=== PATIENT | male | born 1945 | race Caucasian/White ===

== ENCOUNTER 2020-10-27 18:57 | Emergency (ER) | payer MEDICARE, OTHER ==
[~2020-10-27] VITALS: Ht 172.7 cm; Wt 95.2 kg
[~2020-10-27 18:57] MED LIST: ACID1TAB PO; ATROPINE PO; CYCL10TA45 PO; DIPHENOXYLATE PO; FRSM40T PO; FURO10VI IV; Fluticasone Propionate NS; HYDR-34 PO; IPRA3AMP11 INH; KCL20TCR PO; Non Medication Item MC; ONDA2VIA IV; PRD20T PO; Sodium Chloride IV
--- NOTE | 2020-10-27 19:41 | ED General ---
General Chief Complaint: General Problems/Pain Stated Complaint: FATIGUE/WEAKNESS Source of Information: Patient Exam Limitations: No Limitations History of Present Illness Date Seen by Provider: Oct 27, 2020 Time Seen by Provider: 19:28 Initial Comments This is a well-appearing 75-year-old male who presents to the ER with complaints of difficulty sleeping and fatigue 1 week. Has taken Melatonin OTC but this has not helped. States he has no other complaints at this time. Denies fevers, chills, cough, shortness of breath, chest pain, nausea, vomiting, diarrhea, abdominal pain, or difficulty urinating. No ill contacts or COVID exposure. Allergies and Home Medications Allergies Coded Allergies: No Known Drug Allergies (Unverified , 10/17/14) Home Medications Azithromycin 250 Mg Tablet, 250 MG PO DAILY Prescribed by: TRINA CARUSO on 10/27/202111 Furosemide 40 Mg Tab, 40 MG PO DAILY@0700 Prescribed by: JEREMY JERRY on 11/03/14 1443 Methylprednisolone 4 Mg Tab.ds.pk, 4 MG PO UD PER DOSE PACK INSTRUCTIONS Prescribed by: TRINA CARUSO on 10/27/202111 Potassium Chloride 20 Meq Tab, 20 MEQ PO DAILY@0700 Prescribed by: MICKEY MARI on 10/29/14 1036 Patient Home Medication List Home Medication List Reviewed: Yes Review of Systems Review of Systems Constitutional: malaise, weakness EENTM: no symptoms reported Respiratory: no symptoms reported Cardiovascular: no symptoms reported Gastrointestinal: no symptoms reported Genitourinary: no symptoms reported Musculoskeletal: no symptoms reported Skin: no symptoms reported Psychiatric/Neurological: No Symptoms Reported Hematologic/Lymphatic: No Symptoms Reported Immunological/Allergic: no symptoms reported Past Yhknopw-Ptskiv-Vokgjt Hx Immunizations Up To Date Tetanus Booster (TDap): More than 5yrs PED Vaccines UTD: No Date of Pneumonia Vaccine: Oct 25, 2014 Date of Influenza Vaccine: Oct 25, 2014 Past Medical History Tonsillectomy Reproductive Disorders: No Sexually Transmitted Disease: No HIV/AIDS: No Gastroesophageal Reflux, Hemorrhoids, Ulcer Osteoporosis, Arthritis Cataract Hearing Impairment: Hard of Hearing Adverse Reaction/Blood Tranf: No Family Medical History Abdominal aortic aneurysm G8 BROTHER Arthritis 19 FATHER 19 MOTHER G8 BROTHER G8 SISTER Asthma grandmother Cardiovascular disease grandfather Cataracts G8 BROTHER G8 SISTER Colon cancer grandfather Completed stroke grandfather Coronary thrombosis 19 MOTHER Fibrocystic disease of breast G8 SISTER Gastroenteritis 19 FATHER G8 BROTHER Hypercholesterolemia G8 BROTHER Hypertension G8 BROTHER Myocardial infarction 19 MOTHER G8 BROTHER Osteoporosis 19 MOTHER G8 BROTHER Respiratory disorder Thyroid disease 19 MOTHER No Family History of: AIDS [place]'s disease Alcoholism Alzheimer's disease Aphasia Cancer of mouth Congenital disease Congenital heart disease Cystic fibrosis Deafness or hearing loss Dementia Diabetes mellitus Drug abuse Dysphasia Glaucoma Headache disorder Infertility Kidney disease Neoplasm Not obtainable due to adoption Parkinson's disease Prostate cancer Psychosocial problem Seizure disorder Severe allergy Tuberculosis Visual disorder Physical Exam Vital Signs Vital Signs - First Documented 10/27/20 19:30 Temp 38.1 Pulse 76 Resp 20 B/P (MAP) 7/78 (55) Pulse Ox 95 Capillary Refill : Height, Weight, BMI Height: 5'8.00" Weight: 205lbs. 8.0oz. 92.385755ck; BMI Method: General Appearance: No Apparent Distress, WD/WN Eyes: Bilateral Eye Normal Inspection, Bilateral Eye PERRL, Bilateral Eye EOMI HEENT: PERRL/EOMI, Normal ENT Inspection, Pharynx Normal, Moist Mucous Membranes Neck: Full Range of Motion, Normal Inspection, Non Tender Respiratory: Chest Non Tender, Lungs Clear, Normal Breath Sounds, No Accessory Muscle Use, No Respiratory Distress Cardiovascular: Regular Rate, Rhythm, Normal Peripheral Pulses Gastrointestinal: Normal Bowel Sounds, Non Tender, Soft Extremity: Normal Capillary Refill, Normal Inspection Neurologic/Psychiatric: Alert, Oriented x3, No Motor/Sensory Deficits, Normal Mood/Affect Skin: Normal Color, Warm/Dry Progress/Results/Core Measures Suspected Sepsis SIRS Temperature: Pulse: Respiratory Rate: Laboratory Tests 10/27/20 19:47: White Blood Count 4.3 Blood Pressure / Mean: Laboratory Tests 10/27/20 19:47: Creatinine 1.80H, Platelet Count 119L, Total Bilirubin 0.5 Results/Orders Lab Results Laboratory Tests Test 10/27/20 19:47 Range/Units White Blood Count 4.3 4.3-11.0 10^3/uL Red Blood Count 5.16 4.30-5.52 10^6/uL Hemoglobin 14.9 13.3-17.7 g/dL Hematocrit 45 40-54 % Mean Corpuscular Volume 88 80-99 fL Mean Corpuscular Hemoglobin 29 25-34 pg Mean Corpuscular Hemoglobin Concent 33 32-36 g/dL Red Cell Distribution Width 14.9 H 10.0-14.5 % Platelet Count 119 L 130-400 10^3/uL Mean Platelet Volume 9.9 9.0-12.2 fL Immature Granulocyte % (Auto) 1 % Neutrophils (%) (Auto) 70 42-75 % Lymphocytes (%) (Auto) 21 12-44 % Monocytes (%) (Auto) 8 0-12 % Eosinophils (%) (Auto) 0 0-10 % Basophils (%) (Auto) 0 0-10 % Neutrophils # (Auto) 3.0 1.8-7.8 10^3/uL Lymphocytes # (Auto) 0.9 L 1.0-4.0 10^3/uL Monocytes # (Auto) 0.4 0.0-1.0 10^3/uL Eosinophils # (Auto) 0.0 0.0-0.3 10^3/uL Basophils # (Auto) 0.0 0.0-0.1 10^3/uL Immature Granulocyte # (Auto) 0.0 0.0-0.1 10^3/uL Sodium Level 132 L 135-145 MMOL/L Potassium Level 3.6 3.6-5.0 MMOL/L Chloride Level 101 98-107 MMOL/L Carbon Dioxide Level 18 L 21-32 MMOL/L Anion Gap 13 5-14 MMOL/L Blood Urea Nitrogen 28 H 7-18 MG/DL Creatinine 1.80 H 0.60-1.30 MG/DL Estimat Glomerular Filtration Rate 37 BUN/Creatinine Ratio 16 Glucose Level 118 H 70-105 MG/DL Calcium Level 8.6 8.5-10.1 MG/DL Corrected Calcium 9.0 8.5-10.1 MG/DL Total Bilirubin 0.5 0.1-1.0 MG/DL Aspartate Amino Transf (AST/SGOT) 27 5-34 U/L Alanine Aminotransferase (ALT/SGPT) 17 0-55 U/L Alkaline Phosphatase 49 40-136 U/L Total Protein 7.2 6.4-8.2 GM/DL Albumin 3.5 3.2-4.5 GM/DL Coronavirus 2019 (SARAH) Positive H Negative Micro Results Microbiology 10/27/20 Influenza Types A,B Antigen (JOSE L) - Final, Complete My Orders Orders - ZULY,STORMY D ANALYTICS CONSULTANT Covid 19 Inhouse Test (10/27/20 19:36) Influenza A And B Antigens (10/27/20 19:36) Cbc With Automated Diff (10/27/20 19:36) Comprehensive Metabolic Panel (10/27/20 19:36) Chest 1 View, Ap/Pa Only (10/27/20 19:36) Azithromycin Tablet (Zithromax Tablet) (10/27/20 21:15) Vital Signs/I&O 10/27/20 19:30 Temp 38.1 Pulse 76 Resp 20 B/P (MAP) 7/78 (55) Pulse Ox 95 Capillary Refill : Progress Note : Progress Note Pt. stable upon arrival. Orders placed for COVID, Flu, basic labs, and CXR d/t fever and SpO2 94%. He has no complaints at this time. Labs reviewed. He is COVID positive. Noted to have slight elevation in BUN/Creat. Instructed to increase fluids and to follow up with his PCP after isolation to have labs rechecked.Will treat COVID PNA with Z-pack and Medrol dose pack. Reviewed discharge plan and he is agreeable with plan. Diagnostic Imaging Diagonstic Imaging: Xray Plain Films/CT/US/NM/MRI: chest Comments NAME: [facility] REC#: [id number] PT STATUS: REG ER : 1945 PHYSICIAN: TRINA CARUSO ANALYTICS CONSULTANT ADMIT DATE: 10/27/20/ER Signed Date of Exam:10/27/20 CHEST 1 VIEW, AP/PA ONLY EXAMINATION: Chest 1 view. HISTORY: Fatigue. Decreased O2 saturation. COMPARISON: Chest radiograph performed earlier the same date. FINDINGS: The lung volumes are normal. No focal consolidation is seen. Stable patchy opacities are seen. No large pleural effusion or pneumothorax is seen. The cardiomediastinal silhouette is normal in size and contour. There is calcified aortic atherosclerotic plaque. No acute osseous abnormality is seen. IMPRESSION: Stable chest with stable scattered patchy opacities in the lungs, which may represent edema, atelectasis or infection. Dictated by: Dictated on workstation # [id number] Dict: 10/27/202026 Trans: 10/27/202039 [facility] [id number] Interpreted by: CK WOLFF DO Electronically signed by: CK WOLFF DO 10/27/202039 Reviewed: Reviewed by Me Departure Impression Primary Impression: COVID-19 Additional Impression: Fatigue Disposition: 01 HOME, SELF-CARE Condition: Stable/Unchanged Departure-Patient Inst. Decision time for Depature: 21:05 Patient Instructions: Coronavirus Disease 2019 (COVID-19) (DC) Add. Discharge Instructions: Plan: 1. Discharge home. Isolate at home, the [facility] Department will get in touch with you regarding release from isolation. 2. Take antibiotics and steroids as directed. Take steroids with food. 3. May take Tylenol or Ibuprofen as needed for fever. 4. May try Benadryl at home to see if this will help with sleep. 5. Return to ER for any new, concerning, or worsening symptoms. All discharge instructions reviewed with patient and/or family. Voiced understanding. Scripts Methylprednisolone (Methylprednisolone Dose Pack) 4 Mg Tab.ds.pk 4 MG PO UD for 6 Days, #21 PKG 0 Refills PER DOSE PACK INSTRUCTIONS Prov: TRINA CARUSO ANALYTICS CONSULTANT 10/27/20 Azithromycin (Azithromycin) 250 Mg Tablet 250 MG PO DAILY for 4 Days, #4 TAB 0 Refills Prov: TRINA CARUSO ANALYTICS CONSULTANT 10/27/20 TRINA CARUSO ANALYTICS CONSULTANT Oct 27, 2020 19:41
[2020-10-27 19:55] LABS: BASOPHILS % (AUTO) 0 % (0-10); EOSINOPHILS % (AUTO) 0 % (0-10); HEMATOCRIT 45 % (40-54); HEMOGLOBIN 14.9 g/dL (13.3-17.7); LYMPHOCYTES # (AUTO) 0.9 10^3/uL (1.0-4.0); LYMPHOCYTES % (AUTO) 21 % (12-44); MEAN CORPUSCULAR HEMOGLOBIN 29 pg (25-34); MEAN CORPUSCULAR HGB CONC 33 g/dL (32-36); MEAN CORPUSCULAR VOLUME 88 fL (80-99); MEAN PLATELET VOLUME 9.9 fL (9.0-12.2); MONOCYTES # (AUTO) 0.4 10^3/uL (0.0-1.0); MONOCYTES % (AUTO) 8 % (0-12); NEUTROPHILS % (AUTO) 70 % (42-75); PLATELET COUNT 119 10^3/uL (130-400); WHITE BLOOD COUNT 4.3 10^3/uL (4.3-11.0)
[2020-10-27 20:15] LABS: ALBUMIN 3.5 GM/DL (3.2-4.5); BILIRUBIN,TOTAL 0.5 MG/DL (0.1-1.0); CALCIUM 8.6 MG/DL (8.5-10.1); CREATININE SERUM 1.8 MG/DL (0.60-1.30); POTASSIUM 3.6 MMOL/L (3.6-5.0); TOTAL PROTEIN 7.2 GM/DL (6.4-8.2)
--- NOTE | 2020-10-27 20:29 | Diagnostic Imaging Report ---
EXAMINATION: Chest 1 view. HISTORY: Fatigue. Decreased O2 saturation. COMPARISON: Chest radiograph performed earlier the same date. FINDINGS: The lung volumes are normal. No focal consolidation is seen. Stable patchy opacities are seen. No large pleural effusion or pneumothorax is seen. The cardiomediastinal silhouette is normal in size and contour. There is calcified aortic atherosclerotic plaque. No acute osseous abnormality is seen. IMPRESSION: Stable chest with stable scattered patchy opacities in the lungs, which may represent edema, atelectasis or infection. Dictated by: Dictated on workstation # [id number]
[2020-10-27] MEDS ORDERED: AZIT250T12 PO (21:12)
[2020-10-27] MEDS ORDERED: METH4TAB10 PO (21:12)
[2020-10-27] MEDS ORDERED: AZITHROMYCIN 250 MG TAB (ZITHROMAX) PO ONE (21:15)
[2020-10-27 21:48] VITALS: BP 111/72
== END 2020-10-27 21:48 | disposition home or self-care (01) ==
LOC: EDUNIT# 18:57 → ER 19:00
DX: U07.1 COVID-19 (principal); R53.83 Other fatigue; Z82.49 Family history of ischemic heart disease and other diseases of the circulatory system; Z82.61 Family history of arthritis; Z80.0 Family history of malignant neoplasm of digestive organs; Z79.52 Long term (current) use of systemic steroids
CPT/HCPCS: 71045; 80053; 85025; 87804; 99283; U0002; 36415; 87635